=== PATIENT | female | born 1975 | race Two or more races ===

== ENCOUNTER → 2017-10-09 | Day surgery (SDC) | payer OTHER ==
[~2017-10-09] MED LIST: BENTYL10 MG PO; FENTANYL CITRATE/PF 100MCG/2 ML INJ ONE; MIDAZOLAM HCL 2 MG/2 ML VIAL ONE; PROPOFOL IV EMULSION 10 MG/ML 50 ML VIAL ONE
--- NOTE | 2017-10-09 16:06 | Operative Report ---
DATE OF PROCEDURE: October 09, 2017 PROCEDURE PERFORMED: Esophagogastroduodenoscopy with esophageal dilatation. INDICATIONS FOR PROCEDURE: Dysphagia, abdominal pain. MEDICATION: Patient was done under MAC. Please see anesthesiologist's note. PROCEDURE: With the patient in the left lateral decubitus position, the flexible fiberoptic Olympus gastroscope was introduced into the esophagus under direct visualization without any difficulty. The esophagus overall appeared to be within normal limits. There was a mild stricture noted at the GE junction, and that was dilated to size 52-Frisian Rice. The scope was then advanced with ease into the stomach, and mucosa overlying the antrum and the body revealed some patchy erythema and mild to moderate edema, and biopsies were obtained and sent to stain for H. pylori. The pylorus was mildly stenotic, but it opened up nicely after repetitive intubations with the scope. The scope was then advanced with ease to the 2nd portion of the duodenum. It was then withdrawn slowly. Mucosa overlying the proximal 2nd portion and the duodenal bulb appeared to be within normal limits. The scope was then withdrawn back into the stomach and retroflexed, and the mucosa overlying the fundus and the cardia appeared to be within normal limits. The scope was then straightened out. The stomach was decompressed. The scope was subsequently withdrawn. Patient tolerated procedure well. IMPRESSION: 1. Normal esophagus. 2. Mild stricture at gastroesophageal junction dilated to a size 52-Frisian Rice. 3. Gastritis, biopsied. Biopsies sent to stain for H. pylori. 4. Pyloric channel mildly stenotic, opened up nicely with repetitive intubations with the scope. PLAN: Follow up histology. Initiate Protonix 40 mg 1 p.o. q.a.m. a.c. If patient's upper abdominal pain persists, then she might benefit from a colonoscopy. Job#: [id number] EV
== END | disposition home or self-care (01) ==
LOC: OR 12:25
PROVIDERS: ATTEND Internal Medicine Gastroenterology
DX: K22.2 Esophageal obstruction (principal); K29.50 Unspecified chronic gastritis without bleeding; K31.1 Adult hypertrophic pyloric stenosis; R19.7 Diarrhea, unspecified; R63.4 Abnormal weight loss
CPT/HCPCS: 43239; 43245; 43450; J2250

== ENCOUNTER → 2017-11-18 | Outpatient (CLI) | payer OTHER ==
[~2017-11-18] MED LIST changes: -FENTANYL CITRATE/PF 100MCG/2 ML INJ ONE; -MIDAZOLAM HCL 2 MG/2 ML VIAL ONE; -PROPOFOL IV EMULSION 10 MG/ML 50 ML VIAL ONE
== END ==
LOC: MRI 11-17 12:34
PROVIDERS: ATTEND Internal Medicine Gastroenterology
DX: M54.14 Radiculopathy, thoracic region (principal)

== ENCOUNTER 2018-03-22 20:42 | Emergency (ER) | payer OTHER ==
[~2018-03-22] VITALS: Ht 165.1 cm; Wt 75.3 kg
[2018-03-22 22:17] VITALS: BP 120/70
== END 2018-03-22 22:19 | disposition home or self-care (01) ==
LOC: FSED 20:42
DX: R07.89 Other chest pain (principal)
CPT/HCPCS: 71046; 80053; 84484; 85025; 93005; 99283

== ENCOUNTER 2018-06-15 06:32 | Emergency (ER) | payer OTHER ==
[~2018-06-15] VITALS: Ht 165.1 cm; Wt 75.3 kg
[2018-06-15] MEDS ORDERED: METFORMIN HCL500 MG PO (08:05)
[2018-06-15] MEDS ORDERED: LEVOTHYROXINE88 MCG PO (08:05)
[2018-06-15 10:20] VITALS: BP 130/70
== END 2018-06-15 10:29 | disposition home or self-care (01) ==
LOC: FSED 06:32
DX: M79.662 Pain in left lower leg (principal); M79.661 Pain in right lower leg; M25.562 Pain in left knee; M25.561 Pain in right knee; M25.572 Pain in left ankle and joints of left foot; M25.571 Pain in right ankle and joints of right foot; I83.812 Varicose veins of left lower extremity with pain; I83.811 Varicose veins of right lower extremity with pain; I87.2 Venous insufficiency (chronic) (peripheral); E11.9 Type 2 diabetes mellitus without complications; E03.9 Hypothyroidism, unspecified
CPT/HCPCS: 71046; 80053; 81003; 82553; 84484; 85025; 85379; 93005; 93970; 99284

== ENCOUNTER 2018-11-03 20:59 | Emergency (ER) | payer OTHER ==
[~2018-11-03 20:59] MED LIST changes: +LEVOTHYROXINE88 MCG PO; +METFORMIN HCL500 MG PO
== END 2018-11-03 22:49 | disposition left against medical advice (07) ==
LOC: ER 20:59
DX: R10.9 Unspecified abdominal pain (principal)

== ENCOUNTER 2018-11-03 21:25 | Emergency (ER) | payer OTHER ==
[~2018-11-03] VITALS: Ht 165.1 cm; Wt 75.3 kg
[2018-11-03] MEDS ORDERED: SODIUM CHLORIDE 0.9% 1000ML 1,000 ML IV STA (21:35)
[2018-11-03] MEDS ORDERED: FAMOTIDINE 20 MG/2 ML VIAL IV ONE (21:45)
[2018-11-03] MEDS ORDERED: ONDANSETRON HCL INJ 2 MG/ML VIAL IV ONE (21:45)
[2018-11-03] MEDS ORDERED: MORPHINE SULFATE INJ 4 MG/ML INJ IV STA (21:58)
--- NOTE | 2018-11-03 23:07 | Diagnostic Imaging Report ---
EXAM: CT Abdomen and Pelvis WITHOUT contrast INDICATION: Upper abdominal/back pain COMPARISON: None. TECHNIQUE: Abdomen and pelvis were scanned utilizing a multidetector helical scanner from the lung base to the pubic symphysis without administration of IV contrast. Absence of intravenous contrast decreases sensitivity for detection of focal lesions and vascular pathology. Coronal and sagittal reformations were obtained. Routine protocol was performed. IV CONTRAST: None ORAL CONTRAST: Water COMPLICATIONS: None RADIATION DOSE: Total DLP: 609 mGy*cm Estimated effective dose: (DLP x 0.015 x size factor) mSv CTDIvol has been reviewed. It is below the limits set by the Radiation Protocol Committee (RPC). FINDINGS: LINES and TUBES: None. LOWER THORAX: Unremarkable HEPATOBILIARY: No focal hepatic lesions. No biliary ductal dilation. GALLBLADDER: Absent SPLEEN: No splenomegaly. PANCREAS: No focal masses or ductal dilatation. ADRENALS: No adrenal nodules KIDNEYS/URETERS: No hydronephrosis. No cystic or solid mass lesions. No stones. GI TRACT: Small hiatal hernia. No abnormal distention, wall thickening, or evidence of bowel obstruction. There are diverticula within the colon without evidence of diverticulitis. Appendix is not clearly identified. There is however no fat stranding or adenopathy in the right lower quadrant to suggest appendicitis. PELVIC ORGANS/BLADDER: Hysterectomy. No adnexal masses. Bladder is collapsed. LYMPH NODES: No lymphadenopathy. VESSELS: There is mild atherosclerotic disease in the aorta and major arterial branches. PERITONEUM / RETROPERITONEUM: No free air or fluid. BONES: No acute or suspicious osseous lesions. SOFT TISSUES: Unremarkable. IMPRESSION: No acute abnormalities in the abdomen or pelvis. Signed by: DR. Kirill Chauhan MD on 11/03/2018 11:04 PM
[2018-11-03 23:34] VITALS: BP 110/74
== END 2018-11-04 00:08 | disposition home or self-care (01) ==
LOC: FSED 21:25
DX: R10.33 Periumbilical pain (principal); R10.13 Epigastric pain; R10.84 Generalized abdominal pain; R11.0 Nausea; N39.0 Urinary tract infection, site not specified; N30.90 Cystitis, unspecified without hematuria; K29.00 Acute gastritis without bleeding; K25.3 Acute gastric ulcer without hemorrhage or perforation
CPT/HCPCS: 74176; 80048; 80076; 81003; 85025; 99284; J2405; J7030

== ENCOUNTER 2018-11-20 23:31 | Emergency (ER) | payer OTHER ==
[~2018-11-20] VITALS: Ht 165.1 cm; Wt 75.3 kg
--- OUTSIDE RECORDS SUMMARY | 2018-11-20 23:34 | XMS REPORT ---
[facility] Address Unknown Phone Unavailable Care Team Providers Care Meter Inspector Name Role Phone Elizabeth JUÁREZ Unavailable Unavailable Problems This patient has no known problems. Allergies, Adverse Reactions, Alerts This patient has no known allergies or adverse reactions. Medications This patient has no known medications. Results Test Description Test Time Test Comments Text Results Atomic Results Result Comments CT ABD/PEL WO CONTRAST-HOPD 2018-11-03 22:53:00 [place] [address] Patient Name: TARA DIETRICH MR #: [id number] : 1975 Age/Sex: 43/F Req #: [id number] Adm Physician: Ordered by: APOLINAR JUÁREZ MD Report #: [id number] Location: [facility] Room/Bed: Procedure: [id number] HOPD/CT ABD/PEL WO CONTRAST-HOPD Exam Date: 11/03/18 Exam Time: 2230 REPORT STATUS: Signed EXAM: CT Abdomen and Pelvis WITHOUT contrast I NDICATION: Upper abdominal/back pain COMPARISON: None. TECHNIQUE: Abdomen and pelvis were scanned utilizing a multidetector helical scanner from the lung base to the pubic symphysis without administration of IV contrast. Absence of intravenous contrast decreases sensitivity for detection of focal lesions and vascular pathology. Coronal and sagittal reformations were obtained. Routine protocol was performed. IV CONTRAST: None ORAL CONTRAST: Water COMPLICATIONS: None RADIATION DOSE: Total DLP: 609 mGy*cm Estimated effective dose: (DLP x 0.015 x size factor) mSv CTDIvol has been reviewed. It is below the limits set by the Radiation Protocol Committee (RPC). FINDINGS: LINES and TUBES: None. LOWER THORAX: Unremarkable HEPATOBILIARY: No focal hepatic lesions. No biliary ductal dilation. GALLBLADDER: Absent SPLEEN: No splenomegaly. PANCREAS: No focal masses or ductal dilatation. ADRENALS: No adrenal nodules KIDNEYS/URETERS: No hydronephrosis. No cystic or solid mass lesions. No stones. GI TRACT: Small hiatal hernia. No abnormal distention, wall thickening, or evidence of bowel obstruction. There are diverticula within the colon without evidence of diverticulitis. Appendix is not clearly identified. There is however no fat stranding or adenopathy in the right lower quadrant to suggest appendicitis. PELVIC ORGANS/BLADDER: Hysterectomy. No adnexal masses. Bladder is collapsed. LYMPH NODES: No lymphadenopathy. VESSELS: There is mild atherosclerotic disease in the aorta and major arterial branches. PERITONEUM / RETROPERITONEUM: No free air or fluid. BONES: No acute or suspicious osseous lesions. SOFT TISSUES: Unremarkable. IMPRESSION: No acute abnormalities in the abdomen or pelvis. Signed by: DR. Kirill Corado MD on 11/03/2018 11:04 PM Dictated By: KIRILL CORADO MD 03 Transcribed By: LIZANDRO on 11/03/182303 COPY TO: APOLINAR JUÁREZ MD
[2018-11-20] MEDS ORDERED: ASPIRIN 325 MG TAB PO ONE (23:45)
--- NOTE | 2018-11-21 00:40 | Diagnostic Imaging Report ---
Exam: PA and lateral view of the chest Indication: Chest pain Comparison: None Findings: The lungs are clear. Normal appearance of the cardiomediastinal silhouette and bones. No pleural effusions or pneumothorax. Right upper quadrant cholecystectomy clips Impression: Normal chest x-ray. Signed by: Dr. Felicitas Carranza M.D. on 11/21/2018 12:37 AM
[2018-11-21] MEDS ORDERED: PEPCID20 MG PO (00:51)
[2018-11-21] MEDS ORDERED: PANTOPRAZOLE SO40 MG PO (00:51)
== END 2018-11-21 01:39 | disposition home or self-care (01) ==
LOC: FSED 23:31
DX: R07.89 Other chest pain (principal); K21.0 Gastro-esophageal reflux disease with esophagitis; K46.9 Unspecified abdominal hernia without obstruction or gangrene
CPT/HCPCS: 71046; 80048; 80076; 80307; 81003; 82553; 83880; 84484; 85025; 85379; 85610; 93005; 99283

== ENCOUNTER 2018-12-04 23:10 | Emergency (ER) | payer SELFPAY ==
[~2018-12-04] VITALS: Ht 165.1 cm; Wt 74.4 kg
[~2018-12-04 23:10] MED LIST changes: +PANTOPRAZOLE SO40 MG PO; +PEPCID20 MG PO
[2018-12-05] MEDS ORDERED: GABAPENTIN100 MG PO (00:02)
== END 2018-12-05 00:14 | disposition home or self-care (01) ==
LOC: FSED 23:10
DX: G50.0 Trigeminal neuralgia (principal); E11.9 Type 2 diabetes mellitus without complications
CPT/HCPCS: 99282

== ENCOUNTER 2020-01-24 23:04 | Emergency (ER) | payer OTHER ==
[~2020-01-24] VITALS: Ht 165.1 cm; Wt 74.4 kg
[~2020-01-24 23:04] MED LIST changes: +GABAPENTIN100 MG PO
[2020-01-25 00:46] VITALS: BP 162/79
== END 2020-01-25 00:45 | disposition home or self-care (01) ==
LOC: FSED 23:04
DX: M79.662 Pain in left lower leg (principal); S86.112A Strain of other muscle(s) and tendon(s) of posterior muscle group at lower leg level, left leg, initial encounter; I80.02 Phlebitis and thrombophlebitis of superficial vessels of left lower extremity
CPT/HCPCS: 99282

== ENCOUNTER 2020-12-03 00:29 | Emergency (ER) | payer OTHER ==
[~2020-12-03] VITALS: Ht 165.1 cm; Wt 74.4 kg
[2020-12-03] MEDS ORDERED: KETOROLAC TROMETHAMINE 30 MG/ML VIAL IV STA (00:59)
[2020-12-03] MEDS ORDERED: SODIUM CHLORIDE 0.9% 1000ML 1,000 ML IV SCH (01:00)
[2020-12-03] MEDS ORDERED: CYCLOBENZAPRINE10 MG PO (02:53)
== END 2020-12-03 03:17 | disposition home or self-care (01) ==
LOC: FSED 01:00
DX: K57.90 Diverticulosis of intestine, part unspecified, without perforation or abscess without bleeding (principal); S33.5XXA Sprain of ligaments of lumbar spine, initial encounter; X50.0XXA Overexertion from strenuous movement or load, initial encounter; E11.9 Type 2 diabetes mellitus without complications; E03.9 Hypothyroidism, unspecified; I34.1 Nonrheumatic mitral (valve) prolapse; Z87.442 Personal history of urinary calculi
CPT/HCPCS: 74176; 80053; 85025; 99284

== ENCOUNTER 2021-08-05 12:58 | Emergency (ER) | payer OTHER ==
[~2021-08-05] VITALS: Ht 165.1 cm; Wt 74.4 kg
[~2021-08-05 12:58] MED LIST changes: +CYCLOBENZAPRINE10 MG PO
[2021-08-05] MEDS ORDERED: ACETAMINOPHEN500 MG PO (13:20)
[2021-08-05] MEDS ORDERED: IBUPROFEN IB200 MG PO (13:20)
[2021-08-05] MEDS ORDERED: ZANAFLEX4 MG PO (13:20)
[2021-08-05] MEDS ORDERED: IBUPROFEN 600 MG TAB ONE (13:26)
[2021-08-05] MEDS ORDERED: IBUPROFEN 600 MG TAB PO ONE (14:00)
== END 2021-08-05 13:23 | disposition home or self-care (01) ==
LOC: FSED 13:11
DX: M43.6 Torticollis (principal); M54.2 Cervicalgia; E11.9 Type 2 diabetes mellitus without complications; E03.9 Hypothyroidism, unspecified; Z87.442 Personal history of urinary calculi
CPT/HCPCS: 99282